=== PATIENT | female | born 1945 | race Caucasian/White ===

== ENCOUNTER → 2019-08-02 19:18 | Outpatient (ROUT) | payer MEDICARE, SELFPAY ==
[2019-08-02 19:46] LABS: Add Manual Diff / Slide Review NO; Basophils Absolute Auto 100 /uL (0-100); Basophils Percent Auto 1.5 % (0-2); Eosinophils Absolute Auto 100 /uL (0-450); Eosinophils Percent Auto 2.8 % (2-4); Hematocrit 37.6 % (36-46); Hemoglobin 12.6 g/dL (12.0-16.0); Lymphocytes Absolute Auto 1300 /uL (1100-4500); Lymphocytes Percent Auto 25.2 % (25-40); Mean Corpuscular HGB Conc 33.5 % (30-36); Mean Corpuscular Hemoglobin 30.3 PG (26-34); Mean Corpuscular Volume 90.2 fL (80-100); Monocytes Absolute Auto 400 /uL (0-900); Monocytes Percent Auto 7.8 % (3-14); Neutrophils Absolute Auto 3200 /uL (1500-7000); Neutrophils Percent Auto 62.7 % (50-75); Platelet Count 277 X10^3/uL (150-400); Red Blood Cell Count 4.17 X10^6/uL (4.0-5.2); Red Cell Distribution Width 13.2 % (11.6-14.8)
[2019-08-02 19:55] LABS: Alanine Aminotransferase 21 IU/L (<35); Albumin 4.1 g/dL (3.5-5.0); Albumin Globulin Ratio 1.4 (1.0-2.8); Alkaline Phosphatase 52 U/L (38-126); Aspartate Aminotransferase 28 IU/L (14-36); Bilirubin Total 0.3 mg/dL (0.2-1.3); Blood Urea Nitrogen 15 mg/dL (7-17); Calcium 9.8 mg/dL (8.4-10.2); Carbon Dioxide 22 mmol/L (22-32); Chloride 104 mmol/L (98-107); Cholesterol 193 mg/dL (140-199); Estimated Glomerular Filt Rate > 60.0 mL/min (>60); Globulin 2.9 g/dL (1.7-4.1); Glucose 191 mg/dL (80-110); HDL Cholesterol 68 mg/dL (40-60); HEMOLYSIS < 15 (0-50); LDL Cholesterol Calculated 97 mg/dL (<100); Sodium 136 mmol/L (137-145); Triglycerides 140 mg/dL (35-150)
[2019-08-02 20:24] LABS: TSH w/ Reflex to FT4 1.46 uIU/mL (0.47-4.68)
== END ==
PROVIDERS: Visit Provider Student in an Organized Health Care Education/Training Program
DX: E03.9 Hypothyroidism, unspecified (principal); E78.5 Hyperlipidemia, unspecified
CPT/HCPCS: 80053; 80061; 84443; 85025

== ENCOUNTER → 2019-10-11 11:46 | Outpatient (CLI) | payer OTHER, SELFPAY ==
--- NOTE | 2019-10-11 | DI.RAD.S_ITS ---
PROCEDURE: XR WRIST LT MIN 3V INDICATIONS: GLF/ LT WRIST PAIN TECHNIQUE: 4 views of the wrist were acquired. COMPARISON: None. FINDINGS: Bones: On the lateral view there appears to be a dorsally impacted distal radius fracture, presumably acute in this clinical circumstance, and this appearance most likely intra-articular and somewhat greater medially than laterally. Additionally there is a cortical irregularity at the lateral border of the scaphoid bone, seen on the dedicated navicular view and potentially a manifestation of acute injury. No suspicious bony lesions. Scaphoid view: Cortical irregularity as discussed above, lateral border of the scaphoid bone near the junction of the middle and distal thirds worrisome for representing a scaphoid fracture. Soft tissues: No suspicious soft tissue calcifications. IMPRESSION: Definite distal radius dorsally angulated fracture, suspect scaphoid fracture also superimposed. MR scanning could be utilized to document scaphoid fracture if clinically necessary. Dictated by: Ryder Lopez M.D. on 10/11/2019 at 12:14 Approved by: Ryder Lopez M.D. on 10/11/2019 at 12:31
== END ==
PROVIDERS: PCP Student in an Organized Health Care Education/Training Program; Referring Provider Student in an Organized Health Care Education/Training Program; Visit Provider Student in an Organized Health Care Education/Training Program
DX: M25.532 Pain in left wrist (principal); S52.502A Unspecified fracture of the lower end of left radius, initial encounter for closed fracture; W18.30XA Fall on same level, unspecified, initial encounter
CPT/HCPCS: 73110

== ENCOUNTER → 2020-01-11 14:39 | Outpatient (CLI) | payer MEDICARE, SELFPAY | PROVIDERS: PCP Student in an Organized Health Care Education/Training Program; Referring Provider Student in an Organized Health Care Education/Training Program; Visit Provider Student in an Organized Health Care Education/Training Program | DX: M81.0 Age-related osteoporosis without current pathological fracture (principal); M85.80 Other specified disorders of bone density and structure, unspecified site; Z78.0 Asymptomatic menopausal state; E07.9 Disorder of thyroid, unspecified; Z87.891 Personal history of nicotine dependence | CPT/HCPCS: 77080 ==

== ENCOUNTER → 2020-02-26 08:07 | Outpatient (CLI) | payer MEDICARE, SELFPAY ==
--- NOTE | 2020-02-26 08:09 | DI.MG.S_ITS ---
BILATERAL DIGITAL SCREENING MAMMOGRAM 3D/2D WITH CAD: 02/26/2020 CLINICAL: Routine screening. Family history of breast cancer. Comparison is made to exams dated: 12/31/2016 mammogram and 07/14/2014 mammogram - [facility]. The tissue of both breasts is predominantly fatty. Current study was also evaluated with a Computer Aided Detection (CAD) system. No significant masses, calcifications, or other findings are seen in either breast. There has been no significant interval change. IMPRESSION: NEGATIVE There is no mammographic evidence of malignancy. A 1 year screening mammogram is recommended. This exam was interpreted at Station ID: [id number]. NOTE: For mammograms, a report in lay terms will be sent to the patient. Approximately 15% of breast malignancies will not be visualized mammographically. In the management of a palpable breast mass, a negative mammogram must not discourage biopsy of a clinically suspicious lesion. Electronically Signed By: Miguel A [email or web address]:02/28/2020 07:27:15 letter sent: Normal Exam ACR BI-RADS Category 1: Negative 3341F
== END ==
PROVIDERS: PCP Student in an Organized Health Care Education/Training Program; Referring Provider Student in an Organized Health Care Education/Training Program; Visit Provider Student in an Organized Health Care Education/Training Program
DX: Z12.31 Encounter for screening mammogram for malignant neoplasm of breast (principal); Z80.3 Family history of malignant neoplasm of breast
CPT/HCPCS: 77063; 77067

== ENCOUNTER → 2020-07-13 15:14 | Outpatient (ROUT) | payer OTHER, SELFPAY ==
[2020-07-13 15:41] LABS: Hematocrit 39.5 % (36-46); Hemoglobin 13.2 g/dL (12.0-16.0); Mean Corpuscular HGB Conc 33.4 % (30-36); Mean Corpuscular Hemoglobin 30.6 PG (26-34); Mean Corpuscular Volume 91.6 fL (80-100); Platelet Count 309 X10^3/uL (150-400); Red Blood Cell Count 4.32 X10^6/uL (4.0-5.2); Red Cell Distribution Width 13.7 % (11.6-14.8); White Blood Cell Count 5.3 X10^3/uL (4.5-11.0)
[2020-07-13 15:47] LABS: Alanine Aminotransferase 23 IU/L (<35); Albumin 3.9 g/dL (3.5-5.0); Albumin Globulin Ratio 1.3 (1.0-2.8); Alkaline Phosphatase 49 U/L (38-126); Aspartate Aminotransferase 31 IU/L (14-36); BUN Creatinine Ratio 26.7 (6-22); Bilirubin Total 0.5 mg/dL (0.2-1.3); Blood Urea Nitrogen 20 mg/dL (7-17); Calcium 9.5 mg/dL (8.4-10.2); Carbon Dioxide 31 mmol/L (22-32); Chloride 104 mmol/L (98-107); Cholesterol 206 mg/dL (140-199); Estimated Glomerular Filt Rate > 60.0 mL/min (>60); Globulin 2.9 g/dL (1.7-4.1); Glucose 97 mg/dL (80-110); HDL Cholesterol 76 mg/dL (40-60); HEMOLYSIS < 15 (0-50); LDL Cholesterol Calculated 112 mg/dL (<100); Potassium 4.4 mmol/L (3.4-5.1); Sodium 138 mmol/L (137-145); Total Protein 6.8 g/dL (6.3-8.2); Triglycerides 88 mg/dL (35-150)
[2020-07-13 15:56] LABS: Hemoglobin A1C% w Est Avg Glu 5.9 % (4.0-6.0)
[2020-07-13 16:08] LABS: TSH w/ Reflex to FT4 3.11 uIU/mL (0.47-4.68)
== END ==
PROVIDERS: PCP Student in an Organized Health Care Education/Training Program; Visit Provider Student in an Organized Health Care Education/Training Program
DX: Z00.00 Encounter for general adult medical examination without abnormal findings (principal); E78.5 Hyperlipidemia, unspecified; E03.9 Hypothyroidism, unspecified; R73.01 Impaired fasting glucose
CPT/HCPCS: 80053; 80061; 83036; 84443; 85027

== ENCOUNTER → 2021-03-22 16:26 | Outpatient (CLI) | payer OTHER, SELFPAY ==
--- NOTE | 2021-03-22 | DI.MG.S_ITS ---
BILATERAL DIGITAL SCREENING MAMMOGRAM 3D/2D WITH CAD: 03/22/2021 CLINICAL: Routine screening. Family history of breast cancer. Comparison is made to exams dated: 02/26/2020 mammogram - [facility], 12/31/2016 mammogram, and 07/14/2014 mammogram - [facility]. There are scattered fibroglandular elements in both breasts. Current study was also evaluated with a Computer Aided Detection (CAD) system. No significant masses, calcifications, or other findings are seen in either breast. There has been no significant interval change. IMPRESSION: NEGATIVE There is no mammographic evidence of malignancy. A 1 year screening mammogram is recommended. This exam was interpreted at Station ID: [id number]. NOTE: For mammograms, a report in lay terms will be sent to the patient. Approximately 15% of breast malignancies will not be visualized mammographically. In the management of a palpable breast mass, a negative mammogram must not discourage biopsy of a clinically suspicious lesion. Electronically Signed By: Bruno taylor/alia:03/22/2021 17:12:55 letter sent: Normal Exam ACR BI-RADS Category 1: Negative 3341F
== END ==
PROVIDERS: PCP Student in an Organized Health Care Education/Training Program; Referring Provider Student in an Organized Health Care Education/Training Program; Visit Provider Student in an Organized Health Care Education/Training Program
DX: Z12.31 Encounter for screening mammogram for malignant neoplasm of breast (principal)
CPT/HCPCS: 77063; 77067

== ENCOUNTER → 2021-03-27 09:46 | Outpatient (CLI) | payer OTHER, SELFPAY ==
--- NOTE | 2021-03-27 09:47 | DI.RAD.S_ITS ---
PROCEDURE: XR CHEST 2V INDICATIONS: cough x2 years TECHNIQUE: 2 views of the chest were acquired. COMPARISON: None. FINDINGS: Surgical changes and devices: None. Lungs and pleura: Lungs are clear. No pleural effusions or pneumothorax. Mediastinum: Mediastinal contours are normal. Heart size is normal. Bones and chest wall: No suspicious bony abnormalities. Soft tissues appear unremarkable. IMPRESSION: No acute cardiopulmonary disease. Dictated by: Sherri Luciano M.D. on 03/27/2021 at 10:15 Approved by: Sherri Luciano M.D. on 03/27/2021 at 10:16
== END ==
PROVIDERS: PCP Student in an Organized Health Care Education/Training Program; Referring Provider Physician Assistant; Visit Provider Physician Assistant
DX: R05 Cough (principal)
CPT/HCPCS: 71046

== ENCOUNTER 2021-04-27 10:27 | Emergency (ER) | payer OTHER, SELFPAY ==
[2021-04-27 10:50] VITALS: BP 124/65; PULSE 56; RESP 18; TEMP 36.5; O2SAT 99; BMI 25.7
[2021-04-27 11:19] VITALS: PULSE 56; O2SAT 99
[2021-04-27 11:30] VITALS: BP 134/65; PULSE 61; O2SAT 99
[2021-04-27 12:00] VITALS: PULSE 71; O2SAT 99
[2021-04-27 12:01] VITALS: BP 144/60; PULSE 67; O2SAT 98
[2021-04-27 12:01] LABS: COVID19 -Nasal RAPID Negative (Negative)
--- NOTE | 2021-04-27 12:53 | ED.URI ---
HPI - URI/Sore Throat <GERHARD Carcamo - Last Filed: 04/27/21 13:34> General Chief Complaint: Upper Respiratory Symptoms Stated Complaint: vomitting, coughing, chills Time Seen by Provider: 04/27/21 12:03 Source: patient Mode of arrival: Family Vehicle Limitations: no limitations History of Present Illness HPI Narrative: 76-year-old female With past medical history of hyperlipidemia, osteopenia, hypothyroidism presents emergency department with complaint of cough and nausea with 1 episode of vomiting that happened this morning at 4:30 a.m.. She states she is vaccinated for COVID but she was recently exposed to someone who tested positive for COVID. When she threw up this morning she went to come in and make sure that she did not have COVID. She denies having any fever, shortness of breath, wheezing, chest pain, dizziness, persistent nausea, or diarrhea. Review of Systems <GERHARD Carcamo - Last Filed: 04/27/21 13:34> Review of Systems Narrative: General: denies fever, chills Head/Neck: denies headache, neck pain Eyes: denies visual changes, eye pain Cardio: denies chest pain, palpitations Respiratory: denies shortness of breath, endorses having a chronic cough GI: denies abdominal pain, nausea, or diarrhea, endorses 1 episode of vomiting this morning at 4:30 a.m.. : denies dysuria, hematuria MSK: denies joint pain, muscle weakness Skin: denies rash, itching Neuro: denies numbness, tingling Patient History <GERHARD Carcamo - Last Filed: 04/27/21 13:34> Social History Smoking Status: Former smoker Smoking Status: Former smoker tobacco type: cigarettes alcohol intake frequency: 3 or more drinks per day Substance Use Type: marijuana Exam <GERHARD Carcamo Last Filed: 04/27/21 13:34> Narrative Exam Narrative: Independently reviewed vitals signs and nursing notes. General: Awake, alert, nontoxic, no cardiorespiratory distress Head/Neck: Atraumatic, neck full range of motion Eyes: EOMI, conjunctiva normal Nose: nares patent, no rhinorrhea Mouth/Throat: moist mucus membranes, posterior pharynx normal, no oral lesions Cardio: Regular rate and rhythm, no peripheral edema Respiratory: In no distress, respirations unlabored without wheezing, stridor, or rales. No retractions. no tachypnea, regular rate and rhythm, no coughing from my exam, patient is satting 98% on room air. GI: Abdomen soft, nontender MSK: Moves all extremities, neurovascularly intact Skin: Normal capillary refill, no rash Neuro: Normal speech and cognition, normal gait Initial Vital Signs Initial Vital Signs: Vital Signs Temperature 97.7 F 04/27/21 10:50 Pulse Rate 56 L 04/27/21 10:50 Respiratory Rate 18 04/27/21 10:50 Blood Pressure 124/65 04/27/21 10:50 Pulse Oximetry 99 04/27/21 10:50 <Sofia Snider DO - Last Filed: 05/01/21 07:02> Initial Vital Signs Initial Vital Signs: Vital Signs Temperature 97.7 F 04/27/21 10:50 Pulse Rate 56 L 04/27/21 10:50 Respiratory Rate 18 04/27/21 10:50 Blood Pressure 124/65 04/27/21 10:50 Pulse Oximetry 99 04/27/21 10:50 Course <CYRUS CarcamoP - Last Filed: 04/27/21 13:34> Orders Ordered: ED Orders 04/27/21 11:04 COVID19 -Nasal swab/Pre-Proc Stat Vital Signs Vital signs: Vital Signs - 8 hr 04/27/21 10:50 04/27/21 11:19 04/27/21 11:30 Temperature 97.7 F Pulse Rate 56 L 56 L 61 Respiratory Rate 18 Blood Pressure 124/65 134/65 Pulse Oximetry 99 99 99 04/27/21 12:00 04/27/21 12:01 Temperature Pulse Rate 71 67 Respiratory Rate Blood Pressure 144/60 H Pulse Oximetry 99 98 <Sofia Snider DO - Last Filed: 05/01/21 07:02> Orders Ordered: ED Orders 04/27/21 11:04 COVID19 -Nasal swab/Pre-Proc Stat Vital Signs Vital signs: Vital Signs - 8 hr 04/27/21 10:50 04/27/21 11:19 04/27/21 11:30 Temperature 97.7 F Pulse Rate 56 L 56 L 61 Respiratory Rate 18 Blood Pressure 124/65 134/65 Pulse Oximetry 99 99 99 04/27/21 12:00 04/27/21 12:01 Temperature Pulse Rate 71 67 Respiratory Rate Blood Pressure 144/60 H Pulse Oximetry 99 98 MDM - URI/Sore Throat <FeleciaGERHARD Silverman - Last Filed: 04/27/21 13:34> Lab Data Labs: Lab Results 04/27/21 Range/Units 11:04 SARS-CoV-2 (PCR) Negative (Negative) MDM Narrative Medical decision making narrative: Patient has a chronic cough which is unchanged for the last 2 years without evidence of hypoxia, fluid overload, acute cardiopulmonary distress, dehydration or focal exam to suggest that bacterial or viral infection. her greatest concern was that she was COVID positive, on testing today she was COVID negative, she did not feel that she was ill from her 1 episode of emesis I thought maybe it was related to her dinner. She does not have a worsening cough and understands to follow-up with her PCP regarding her chronic cough. Patient is appropriate and amenable to discharge home. Vital signs are stable on repeat examination is unremarkable. Patient has been informed of results. Patient has been given strict return to ER precautions for any new or worsening symptoms. Patient understands to follow up closely with outpatient providers as instructed. Patient understands plan and agrees to discharge home. All questions and concerns answered at this time. <Sofia Snider DO - Last Filed: 05/01/21 07:02> Lab Data Labs: Lab Results 04/27/21 Range/Units 11:04 SARS-CoV-2 (PCR) Negative (Negative) Discharge Plan Departure Patient Disposition: Home Clinical Impression: Nausea, Cough Instructions: DI for Nausea -- Adult Activity Restrictions/Additional Instructions: *You have been diagnosed with a cough and an episode of vomiting this morning. Your COVID test was negative, was congratulations. Please monitor yourself for of fever, worsening also shortness of breath symptoms, any more episodes of vomiting, and please return to the emergency department with worsening of any of these symptoms. *What to do: *Please continue to take your regular medications as directed. [ ] New medication prescriptions sent to your pharmacy: [ ] [ ] New medication written as a paper prescription [x ] No new medications given *Please follow up with your primary care provider in 2-3 days, call for an appointment. Let them know you were seen in the Emergency Department and that we ask that you be seen in follow up. We will electronically transmit a record of today's note if your PCP is in our system *If you do not have a primary care provider please contact the [facility] Resource line at [phone]. They will ask some questions about your medical history and help get you set up with a doctor in the community. *Return to Emergency Department if you should have any new, worsening or concerning symptoms, such as [fever greater than 101F, chills, worsening pain, persistent vomiting or other bothersome symptoms] Referrals: Berta Espitia PA-C [Primary Care Provider] - <Sofia Snider DO - Last Filed: 05/01/21 07:02> Cosign ED Attending Rose Maryature Attestation: I was immediately available in the department for consultation. Documentation has been reviewed. I agree with assessment and plan.
== END 2021-04-27 12:20 | disposition home or self-care (01) ==
PROVIDERS: Emergency Medicine; Emergency Provider Nurse Practitioner Critical Care Medicine; PCP Student in an Organized Health Care Education/Training Program
DX: R11.2 Nausea with vomiting, unspecified (principal); R05.3 Chronic cough; Z20.822 Contact with and (suspected) exposure to COVID-19
CPT/HCPCS: 87635; 99282; C9803

== ENCOUNTER → 2022-06-14 11:00 | Outpatient (CLI) | payer OTHER, SELFPAY ==
--- NOTE | 2022-06-14 | DI.MG.S_ITS ---
BILATERAL DIGITAL SCREENING MAMMOGRAM 3D/2D WITH CAD: 06/14/2022 CLINICAL: Routine screening. Family history of breast cancer. Comparison is made to exams dated: 03/22/2021 mammogram, 02/26/[address] mamm[address] - [facility], and 12/31/2016 mammogram - [facility]. There are scattered areas of fibroglandular density in both breasts (category b / 25%-50% glandular tissue). Current study was also evaluated with a Computer Aided Detection (CAD) system. No significant masses, calcifications, or other findings are seen in either breast. There has been no significant interval change. IMPRESSION: NEGATIVE There is no mammographic evidence of malignancy. A 1 year screening mammogram is recommended. Based on the Tyrer Cuzick model (a risk assessment model) the patient's lifetime risk is 3.7% and her 10 year risk is 0.0%. According to the ACR, ACS, and NCCN guidelines, an annual breast MRI exam along with mammogram is recommended if the patient's lifetime risk is 20% or greater. This exam was interpreted at Station ID: [id number]. NOTE: For mammograms, a report in lay terms will be sent to the patient. Approximately 15% of breast malignancies will not be visualized mammographically. In the management of a palpable breast mass, a negative mammogram must not discourage biopsy of a clinically suspicious lesion. Electronically Signed By: Mena [email or web address]/alia:06/14/2022 13:45:18 letter sent: Normal Exam ACR BI-RADS Category 1: Negative 3341F
== END ==
PROVIDERS: PCP Student in an Organized Health Care Education/Training Program; Referring Provider Student in an Organized Health Care Education/Training Program; Visit Provider Student in an Organized Health Care Education/Training Program
DX: Z12.31 Encounter for screening mammogram for malignant neoplasm of breast (principal); Z80.3 Family history of malignant neoplasm of breast
CPT/HCPCS: 77063; 77067

== ENCOUNTER → 2022-07-17 12:23 | Outpatient (CLI) | payer OTHER, SELFPAY ==
--- NOTE | 2022-07-17 12:24 | DI.RAD.S_ITS ---
PROCEDURE: XR LUMBAR SPINE 6V W BENDING INDICATIONS: back pain TECHNIQUE: 7 views of the lumbar spine acquired, including flexion and extension views. COMPARISON: None. FINDINGS: Bones: 5 nonrib-bearing vertebrae are present. There is mild scoliosis. There is grade 1 anterolisthesis of L4 on L5. No vertebral body compression fractures. No suspicious bony lesions. Degenerative disc disease is present, moderate at L4-L5 and L5-S1, mild at other levels. Moderate facet arthropathy at L4-L5 and L5-S1. Soft tissues: Overlying bowel gas pattern is normal. Moderate atherosclerotic calcifications. Flexion/extension: There is normal range of motion, with preserved normal alignment. Oblique views: No pars defects. IMPRESSION: 1. Multilevel degenerative disc and facet disease in lumbar spine, most pronounced at L4-L5 and L5-S1. 2. Grade 1 anterolisthesis of L4 on L5. 3. On flexion extension, there is stable alignment. 4. No pars defects. 5. Moderate atherosclerosis. Dictated by: Sherri Luciano M.D. on 07/17/2022 at 16:40 Approved by: Sherri Luciano M.D. on 07/17/2022 at 16:44
== END ==
PROVIDERS: PCP Family Medicine; Referring Provider Family Medicine; Visit Provider Family Medicine
DX: M51.16 Intervertebral disc disorders with radiculopathy, lumbar region (principal); M51.17 Intervertebral disc disorders with radiculopathy, lumbosacral region; M47.26 Other spondylosis with radiculopathy, lumbar region; M47.27 Other spondylosis with radiculopathy, lumbosacral region; M43.16 Spondylolisthesis, lumbar region; G89.29 Other chronic pain
CPT/HCPCS: 72114

== ENCOUNTER 2022-08-24 15:35 | Emergency (ER) | payer OTHER, SELFPAY ==
[2022-08-24] VITALS (7 sets, daily range): BP systolic 118–158; BP diastolic 70–78; PULSE 68–76; RESP 18; TEMP 37; O2SAT 96–99; BMI 23.0
[2022-08-24 16:12] LABS: Add Manual Diff / Slide Review NO; Basophils Absolute Auto 100 /uL (0-100); Basophils Percent Auto 0.7 % (0-2); Eosinophils Absolute Auto 200 /uL (0-450); Eosinophils Percent Auto 2.1 % (2-4); Hematocrit 38.6 % (36-46); Lymphocytes Absolute Auto 900 /uL (1100-4500); Lymphocytes Percent Auto 10.5 % (25-40); Mean Corpuscular HGB Conc 33.7 % (30-36); Mean Corpuscular Hemoglobin 30.3 PG (26-34); Mean Corpuscular Volume 89.9 fL (80-100); Monocytes Absolute Auto 800 /uL (0-900); Monocytes Percent Auto 9.6 % (3-14); Neutrophils Absolute Auto 6500 /uL (1500-7000); Neutrophils Percent Auto 77.1 % (50-75); Platelet Count 314 X10^3/uL (150-400); Red Cell Distribution Width 13.9 % (11.6-14.8); White Blood Cell Count 8.4 X10^3/uL (4.5-11.0)
[2022-08-24 16:20] LABS: Alanine Aminotransferase 17 IU/L (<35); Albumin 4.2 g/dL (3.5-5.0); Albumin Globulin Ratio 1.2 (1.0-2.8); Alkaline Phosphatase 55 U/L (38-126); Aspartate Aminotransferase 24 IU/L (14-36); BUN Creatinine Ratio 21.2 (6-22); Bilirubin Total 0.5 mg/dL (0.2-1.3); Blood Urea Nitrogen 14 mg/dL (7-17); Calcium 9.5 mg/dL (8.4-10.2); Carbon Dioxide 25 mmol/L (22-32); Chloride 102 mmol/L (98-107); Estimated Glomerular Filt Rate > 60 mL/min (>60); Globulin 3.4 g/dL (1.7-4.1); Glucose 102 mg/dL (80-110); HEMOLYSIS 19 (0-50); Lipase 109 U/L (23-300); Potassium 4.3 mmol/L (3.4-5.1); Sodium 137 mmol/L (137-145); Total Protein 7.6 g/dL (6.3-8.2)
--- NOTE | 2022-08-24 16:29 | ED_ITS ---
HPI - Abdominal Pain General Chief Complaint: Abdominal Pain Stated Complaint: bowel pain/blood in bm x1 day Time Seen by Provider: 08/24/22 16:11 Source: patient Mode of arrival: Ambulatory History of Present Illness HPI narrative: Patient healthy 77-year-old female history of hyperlipidemia hypothyroid presenting today with left lower quadrant pain. She says she intermittently has some abdominal pain however last 6-8 hours it has been fairly constant. No nausea vomiting or fever. No bowel movement. She denies any chest pain. No flank pain or radiation to her groin. Prior history of kidney stones or diverticulitis. Denies any painful or frequent urination. She is not taken anything at home for pain Related Data Previous Rx's Medication Instructions Recorded alendronate 70 mg tablet 70 mg PO QWEEK #12 tabs 07/12/22 atorvastatin 20 mg tablet 20 mg PO BEDTIME #90 tabs 07/12/22 levothyroxine 50 mcg tablet 50 mcg PO DAILY #90 tabs 07/12/22 ciprofloxacin HCl 500 mg tablet 500 mg PO BID #20 tabs 08/24/22 (Cipro) metronidazole 500 mg tablet 500 mg PO Q8H 10 days #30 tabs 08/24/22 Allergies Allergy/AdvReac Type Severity Reaction Status Date / Time No Known Drug Allergies Allergy Unverified 07/12/22 14:43 Review of Systems Review of Systems ROS Unobtainable: All systems reviewed & are unremarkable except as noted in HPI and below Patient History Medical History Cataracts, bilateral Fractures (~2019) Hypothyroidism (~2009) Osteoporosis (~2013) Surgical History Anesthesia History of cataract removal with insertion of prosthetic lens History of section (~05/10/85) Family History Father History of emphysema Mother Cancer Grandmother Diabetes mellitus Social History Smoking Status: Former smoker Tobacco: How many years used: 10 alcohol intake: current (4-5 drinks per week ) substance use type: does not use Smoking Status: Former smoker tobacco type: cigarettes alcohol intake frequency: 3 or more drinks per day Alcohol type: wine Substance Use Type: does not use Exam Initial Vital Signs Initial Vital Signs: Vital Signs Temperature 98.6 F 08/24/22 15:47 Pulse Rate 76 08/24/22 15:47 Respiratory Rate 18 08/24/22 15:47 Blood Pressure 158/78 H 08/24/22 15:47 Pulse Oximetry 98 08/24/22 15:47 Oxygen Delivery Method 08/24/22 15:47 GENERAL: Alert pleasant well-appearing 77-year-old female and in no acute dist ress. HEENT: Head atraumatic,EOMI, pupils reactive, face symmetric, moist mucous membranes CARDIOVASCULAR: Regular rate and rhythm without murmurs, rubs or gallops. RESPIRATORY: Breath sounds equal bilaterally, no wheezes rales or rhonchi. ABDOMEN: Soft, tender left lower quadrant no guarding no rebound mild suprapubic pain no right lower quadrant pain : No CVA tenderness EXTREMITIES: Normal range of motion, no clubbing or edema. Neurovascularly intact NEUROLOGICAL: Alert and oriented x4.Normal gait and speech. SKIN: Warm, dry, no laceration, no petechiae, no rashes or lesions. Course Orders Ordered: ED Orders 08/24/22 16:00 Complete Blood Count AUTO DIFF Stat Comprehensive Metabolic Panel Stat Lipase Stat Urine Microscopic Stat 08/24/22 16:21 EKG-12 Lead Stat 08/24/22 16:34 CT abdomen pelvis w con Stat Discontinued Medications Ciprofloxacin (Ciprofloxacin 250 Mg Tablet) 500 mg PO NOW ONE Stop: 08/24/22 17:39 Last Admin: 08/24/22 17:42 Dose: 500 mg Documented By: CM Ketorolac Tromethamine (Ketorolac 30 Mg/Ml Vial) 15 mg IV NOW ONE Stop: 08/24/22 16:35 Last Admin: 08/24/22 16:51 Dose: 15 mg Documented By: ABDIRASHID Metronidazole (Metronidazole 500 Mg Tablet) 500 mg PO NOW ONE Stop: 08/24/22 17:38 Last Admin: 08/24/22 17:41 Dose: 500 mg Documented By: CM Ondansetron HCl (Ondansetron 4 Mg/2 Ml Inj) 4 mg IV NOW PRN PRN Reason: Nausea And Vomiting Vital Signs Vital signs: Vital Signs - 8 hr 08/24/22 15:47 08/24/22 16:01 08/24/22 16:30 Temperature 98.6 F Pulse Rate 76 74 69 Respiratory Rate 18 Blood Pressure 158/78 H Pulse Oximetry 98 97 96 Oxygen Delivery Method Room Air 08/24/22 16:55 08/24/22 16:55 08/24/22 17:00 Temperature Pulse Rate 68 Respiratory Rate Blood Pressure 118/74 135/71 Pulse Oximetry 98 Oxygen Delivery Method 08/24/22 17:00 08/24/22 17:30 08/24/22 17:31 Temperature Pulse Rate 68 70 Respiratory Rate Blood Pressure 146/70 H Pulse Oximetry 99 98 Oxygen Delivery Method MDM - Abdominal Pain Lab Data 08/24/22 16:00 08/24/22 16:00 Labs: Lab Results 08/24/22 08/24/22 08/24/22 Range/Units 16:00 16:00 16:00 WBC 8.4 (4.5-11.0) X10^3/uL RBC 4.30 (4.0-5.2) X10^6/uL Hgb 13.0 (12.0-16.0) g/dL Hct 38.6 (36-46) % MCV 89.9 (80-100) fL MCH 30.3 (26-34) PG MCHC 33.7 (30-36) % RDW 13.9 (11.6-14.8) % Plt Count 314 (150-400) X10^3/uL Neut % (Auto) 77.1 H (50-75) % Lymph % (Auto) 10.5 L (25-40) % Swift % (Auto) 9.6 (3-14) % Eos % (Auto) 2.1 (2-4) % Baso % (Auto) 0.7 (0-2) % Neut # (Auto) 6500 (7562-8647) /uL Lymph # (Auto) 900 L (0525-8435) /uL Swift # (Auto) 800 (0-900) /uL Eos # (Auto) 200 (0-450) /uL Baso # (Auto) 100 (0-100) /uL Sodium 137 (137-145) mmol/L Potassium 4.3 (3.4-5.1) mmol/L Chloride 102 (98-107) mmol/L Carbon Dioxide 25 (22-32) mmol/L BUN 14 (7-17) mg/dL Creatinine 0.66 (0.52-1.04) mg/dL Estimated GFR > 60 (>60) mL/min BUN/Creatinine Ratio 21.2 (6-22) Glucose 102 (80-110) mg/dL Calcium 9.5 (8.4-10.2) mg/dL Total Bilirubin 0.5 (0.2-1.3) mg/dL AST 24 (14-36) IU/L ALT 17 (<35) IU/L Alkaline Phosphatase 55 (38-126) U/L Total Protein 7.6 (6.3-8.2) g/dL Albumin 4.2 (3.5-5.0) g/dL Globulin 3.4 (1.7-4.1) g/dL Albumin/Globulin Ratio 1.2 (1.0-2.8) Lipase 109 (23-300) U/L Urine RBC 0-1/hpf (0-5/HPF) Urine WBC None seen (0-5/HPF) Urine Bacteria None seen (None) Ur Culture Indicated? Cult not indicated Point of care testing: Urine Dip Bedside Urine Glucose Negative Bedside Urine Bilirubin - Negative Bedside Urine Ketone - Negative Urine Specific [place] 1.015 Bedside Urine Occult Blood ++ Bedside Urine pH 6.0 Bedside Urine Protein - Negative Bedside Urine Urobilinogen - Negative Bedside Urine Nitrite - Negative Bedside Urine Leukocytes - Negative Esterase Imaging Data CT scan - abdomen/pelvis: Radiologist's Impression: CT Scan Report Signed Patient: Maty Live MR#: [id number] : 1945 Acct:[id number] Age/Sex: 77 / F Date of Service: 08/24/22 Loc: ED Accession Number: [id number] ?? Procedure: CT abdomen pelvis w con Ordering Provider: Sofia Snider D.O. PROCEDURE:? CT ABDOMEN PELVIS W CON ? INDICATIONS:? LLQ pain ? TECHNIQUE:? After the administration of IV contrast, axial sections were acquired from the lung bases to the pubic symphysis.? Coronal and sagittal reformats were performed.? For radiation dose reduction, the following was used:? automated exposure control, adjustment of mA and/or kV according to patient size. ? COMPARISON:? [facility], CR, XR LUMBAR SPINE 6V W BENDING, 07/17/2022, 12:23. ? FINDINGS:? Image quality:? Excellent.? ? Lung bases:? Unremarkable.? ? Heart:? No significant findings. ? ? ABDOMEN: Liver:? Unremarkable.? ? Gallbladder:? Unremarkable.? ? Biliary ducts:? Unremarkable.? ? Pancreas:? Unremarkable.? ? Spleen:? Unremarkable.? ? Incidental note is made of an accessory splenule along the hilum of the primary spleen. Adrenal Glands:? Unremarkable.? ? Kidneys and Ureters:? Unremarkable.? ? ? Stomach and Bowel:? Focal moderate wall thickening can be seen within the sigmoid colon, where it diverticula formation can be seen.? Moderate surrounding inflammatory change can be seen. The colon is otherwise unremarkable. No dilated loops of small bowel are seen. Normal appendix. The stomach is relatively decompressed, limiting its evaluation. Peritoneum:? No abnormal intraperitoneal fluid.? No free air.? ? Ventral Wall: ? No hernia.? Abdominal Nodes:? No retroperitoneal or mesenteric adenopathy by size criteria.? Vessels:? Aorta and inferior vena cava are normal in size.? Atherosclerotic calcification is noted.? ? PELVIS: Pelvic Organs:? Unremarkable.? ? Bladder:? Unremarkable.? ? Pelvic Nodes: No enlarged lymph nodes.? Miscellaneous: No inguinal hernias are seen. ? ? ? Bones:? Focal lower lumbar spine degenerative changes are seen.? Milder degenerative changes are seen elsewhere.? ? ? IMPRESSION:? ? Moderate sigmoid diverticulitis, without findings of perforation or abscess. ? When clinically appropriate (following adequate treatment of the patient's current clinical episode) a colonoscopy is recommended for further evaluation for a potential underlying mass (if not already recently done). ? Additional findings:? Accessory splenule Normal appendix Focal lower lumbar spine degenerative change ? ? Dictated by: Karl Rolle M.D. on 08/24/2022 at 15:55 ? ? ECG Data Interpretation: Normal sinus rhythm rate 69 MS interval 142 QRS [address] changes no T- wave inversions MDM Narrative Medical decision making narrative: Patient 77-year-old female relatively healthy presenting with about 8 hours of left lower quadrant pain she feels is just different than her normal. No fever no leukocytosis. Electrolytes are within normal limits no sign of acute kidney injury. CT confirms uncomplicated diverticulitis. At this time medical management only with outpatient antibiotics. She is given her 1st dose of antibiotics here in the. She is feeling better after IV Toradol. Previous [facility] visit from earlier this year has been reviewed Discharge Plan Departure Patient Disposition: Home Clinical Impression: Diverticulitis Instructions: DI for Diverticulitis Activity Restrictions/Additional Instructions: *You have been diagnosed with diverticulitis *What to do: At this time he may find that a low-fiber diet maybe less painful for you. However once your done with antibiotics in your infection has healed please be sure to resume high-fiber diet. *Continue to take medications as directed Cipro 500 mg twice a day for 10 days Flagyl 500 mg 3 times a day for 10 days Motrin 600 mg every 6 hours if needed for [id number] pain Tylenol 650 mg every 4-6 hours if needed for [id number] pain *Follow up with your primary care provider in 2-3 days or call [phone] *Return to ER if you should have increasing abdominal pain bloody stools persistent vomiting fever [or] any new, worsening or concerning symptoms Prescriptions: New metronidazole 500 mg tablet 500 mg PO Q8H 10 Days Qty: 30 0RF ciprofloxacin HCl [Cipro] 500 mg tablet 500 mg PO BID Qty: 20 0RF No Action levothyroxine 50 mcg tablet 50 mcg PO DAILY Qty: 90 3RF atorvastatin 20 mg tablet 20 mg PO BEDTIME Qty: 90 3RF alendronate 70 mg tablet 70 mg PO QWEEK Qty: 12 3RF Referrals: Susan Masters DO [Primary Care Provider] - Stand Alone Forms: Patient Portal/API
--- NOTE | 2022-08-24 16:34 | DI.CT.S_ITS ---
PROCEDURE: CT ABDOMEN PELVIS W CON INDICATIONS: LLQ pain TECHNIQUE: After the administration of IV contrast, axial sections were acquired from the lung bases to the pubic symphysis. Coronal and sagittal reformats were performed. For radiation dose reduction, the following was used: automated exposure control, adjustment of mA and/or kV according to patient size. COMPARISON: [facility], CR, XR LUMBAR SPINE 6V W BENDING, 07/17/2022, 12:23. FINDINGS: Image quality: Excellent. Lung bases: Unremarkable. Heart: No significant findings. ABDOMEN: Liver: Unremarkable. Gallbladder: Unremarkable. Biliary ducts: Unremarkable. Pancreas: Unremarkable. Spleen: Unremarkable. Incidental note is made of an accessory splenule along the hilum of the primary spleen. Adrenal Glands: Unremarkable. Kidneys and Ureters: Unremarkable. Stomach and Bowel: Focal moderate wall thickening can be seen within the sigmoid colon, where it diverticula formation can be seen. Moderate surrounding inflammatory change can be seen. The colon is otherwise unremarkable. No dilated loops of small bowel are seen. Normal appendix. The stomach is relatively decompressed, limiting its evaluation. Peritoneum: No abnormal intraperitoneal fluid. No free air. Ventral Wall: No hernia. Abdominal Nodes: No retroperitoneal or mesenteric adenopathy by size criteria. Vessels: Aorta and inferior vena cava are normal in size. Atherosclerotic calcification is noted. PELVIS: Pelvic Organs: Unremarkable. Bladder: Unremarkable. Pelvic Nodes: No enlarged lymph nodes. Miscellaneous: No inguinal hernias are seen. Bones: Focal lower lumbar spine degenerative changes are seen. Milder degenerative changes are seen elsewhere. IMPRESSION: Moderate sigmoid diverticulitis, without findings of perforation or abscess. When clinically appropriate (following adequate treatment of the patient's current clinical episode) a colonoscopy is recommended for further evaluation for a potential underlying mass (if not already recently done). Additional findings: Accessory splenule Normal appendix Focal lower lumbar spine degenerative change Dictated by: Karl Rolle M.D. on 08/24/2022 at 15:55 Approved by: Karl Rolle M.D. on 08/24/2022 at 15:57
[2022-08-24 16:42] LABS: Bacteria Urine None Seen; Culture Indicated Urine Cult Not Indicated; RBC Urine 0-1/HPF (0-5/HPF); WBC Urine None Seen (0-5/HPF)
[2022-08-24] MEDS: KETOROLAC 30 MG/ML VIAL 15 MG IV (16:51)
[2022-08-24] MEDS: metroNIDAZOLE 500 MG TABLET PO (17:41)
[2022-08-24] MEDS: CIPROFLOXACIN 250 MG TABLET 500 MG PO (17:42)
== END 2022-08-24 17:43 | disposition home or self-care (01) ==
PROVIDERS: Emergency Provider Emergency Medicine; PCP Family Medicine
DX: K57.92 Diverticulitis of intestine, part unspecified, without perforation or abscess without bleeding (principal)
CPT/HCPCS: 36415; 74177; 80053; 81003; 81015; 83690; 85025; 93005; 93010; 96374; 99284; J1885; Q9967

== ENCOUNTER → 2022-11-29 08:36 | Outpatient (CLI) | payer MEDICARE, SELFPAY ==
[2022-11-29 09:09] LABS: Hematocrit 39.4 % (36-46); Hemoglobin 13.1 g/dL (12.0-16.0); Mean Corpuscular HGB Conc 33.1 % (30-36); Mean Corpuscular Hemoglobin 30.1 PG (26-34); Platelet Count 319 X10^3/uL (150-400); Red Blood Cell Count 4.33 X10^6/uL (4.0-5.2); Red Cell Distribution Width 14.7 % (11.6-14.8); White Blood Cell Count 4.9 X10^3/uL (4.5-11.0)
[2022-11-29 09:30] LABS: Alanine Aminotransferase 25 IU/L (<35); Albumin Globulin Ratio 1.3 (1.0-2.8); Alkaline Phosphatase 44 U/L (38-126); Aspartate Aminotransferase 31 IU/L (14-36); Bilirubin Total 0.5 mg/dL (0.2-1.3); Blood Urea Nitrogen 15 mg/dL (7-17); Calcium 9.2 mg/dL (8.4-10.2); Carbon Dioxide 29 mmol/L (22-32); Chloride 104 mmol/L (98-107); Cholesterol 189 mg/dL (140-199); Estimated Glomerular Filt Rate > 60 mL/min (>60); Globulin 3.1 g/dL (1.7-4.1); Glucose 105 mg/dL (80-110); HDL Cholesterol 64 mg/dL (40-60); HEMOLYSIS < 15 (0-50); LDL Cholesterol Calculated 111 mg/dL (<100); Potassium 4.2 mmol/L (3.4-5.1); Sodium 138 mmol/L (137-145); Total Protein 7.1 g/dL (6.3-8.2); Triglycerides 69 mg/dL (35-150)
[2022-11-29 09:48] LABS: Free T3, Triiodothyronine Free 3.18 pg/mL (2.77-5.27); Free T4, Direct Thyroxine 1.26 ng/dL (0.78-2.19)
[2022-11-29 10:01] LABS: Thyroid Stimulating Hormone 0.802 uIU/mL (0.47-4.68)
== END ==
PROVIDERS: PCP Family Medicine; Referring Provider Family Medicine; Visit Provider Family Medicine
DX: E03.9 Hypothyroidism, unspecified (principal); E78.5 Hyperlipidemia, unspecified; Z13.220 Encounter for screening for lipoid disorders; Z76.89 Persons encountering health services in other specified circumstances
CPT/HCPCS: 36415; 80053; 80061; 84439; 84443; 84481; 85027

== ENCOUNTER → 2023-01-09 10:15 | Outpatient (CLI) | payer MEDICARE, SELFPAY ==
--- NOTE | 2023-01-09 10:16 | DI.RAD.S_ITS ---
Bone Density Report Name: YAQUELIN WILLSON Age: 77 Sex: Female Ethnicity: White Date of : 1945 Indication: postmenopausal osteoporosis; monitoring treatment; Referring Provider: IRIS OSEGUERA Study: Bone densitometry was performed. Exam Date: January 09, 2023 Accession number: [id number] Bone Density: Region BMD T-score Z-score Classification AP Spine(L1, L2, L3) 0.831 -1.7 0.8 Osteopenia Femoral Neck (Left) 0.735 -1.0 1.2 Normal Total Hip (Left) 0.814 -1.1 0.9 Osteopenia Femoral Neck (Right) 0.765 -0.8 1.4 Normal Total Hip (Right) 0.784 -1.3 0.6 Osteopenia Total Hip Mean 0.799 -1.2 0.8 Osteopenia Total Forearm (Left) 0.397 -3.4 -0.6 Osteoporosis 1/3 Forearm (Left) 0.503 -3.2 -0.3 Osteoporosis UD Forearm (Left) 0.346 -1.7 0.4 Osteopenia World Health Organization criteria for BMD impression classify patients as: Normal (T-score at or above -1.0), Osteopenia (T-score between -1.0 and -2.5), or Osteoporosis (T-score at or below -2.5). 10-year Fracture Risk: FRAX not reported because: Treated for osteoporosis Previous Exams: -- Region Exam Age BMD T-score BMD Change BMD Change Date g/cm2 vs Baseline vs Previous -- AP Spine (L1-L3) 01/09/2023 77 0.831 -1.7 0.118 (16.6%)# 0.118 (16.6%)# 01/11/2020 74 0.713 -2.8 Total Hip(Left) 01/09/2023 77 0.814 -1.1 0.005 (0.7%)# 0.005 (0.7%)# 01/11/2020 74 0.809 -1.1 Total Hip(Right) 01/09/2023 77 0.784 -1.3 -0.016 (-1.9%)# -0.016 (-1.9%)# 01/11/2020 74 0.799 -1.2 -- *Denotes significance at 95% confidence level, LSC for AP Spine = 0.022 g/cm2, LSC for Total Hip = 0.027 g/cm2 # Denotes dissimilar scan types or analysis methods Impression: The patient has low bone mass, based on the Total Spine T-score. No significant bone loss was observed. Discussion: PATIENT UNDER TREATMENT WITH NO SIGNIFICANT BMD LOSS SINCE LAST EXAM. In an untreated patient, BMD typically declines with age. A lack of decline or gain is usually a sign that treatment is efficacious and fracture risk is reduced. It is important to ask patients whether they are taking their medications and to encourage continued and appropriate compliance with their osteoporosis therapies to reduce fracture risk. It is also important to review their risk factors and encourage appropriate calcium and vitamin D intakes, exercise, fall prevention and other lifestyle measures. Follow-Up: Consider a repeat BMD and Vertebral Fracture Assessment (VFA) exam in 2 years or sooner if medically necessary, to reassess this patient's status. Reported by: JORDON CASTRO M.D. on 01/09/2023 11:10:00 AM.
== END ==
PROVIDERS: PCP Family Medicine; Referring Provider Family Medicine; Visit Provider Family Medicine
DX: M81.0 Age-related osteoporosis without current pathological fracture (principal); Z78.0 Asymptomatic menopausal state; Z79.83 Long term (current) use of bisphosphonates
CPT/HCPCS: 77080; 77081

== ENCOUNTER → 2023-06-26 07:59 | Outpatient (CLI) | payer MEDICARE, SELFPAY ==
--- NOTE | 2023-06-26 | DI.MG.S_ITS ---
BILATERAL DIGITAL SCREENING MAMMOGRAM 3D/2D WITH CAD: 06/26/2023 CLINICAL: Routine screening. Family history of breast cancer. Comparison is made to exams dated: 06/14/2022 mammogram, 03/22/2021 mammogram, and 02/26/2020 mammogram - [facility]. There are scattered areas of fibroglandular density in both breasts (category b / 25%-50% glandular tissue). Current study was also evaluated with a Computer Aided Detection (CAD) system. No significant masses, calcifications, or other findings are seen in either breast. There has been no significant interval change. IMPRESSION: NEGATIVE There is no mammographic evidence of malignancy. A 1 year screening mammogram is recommended. Based on the Tyrer Cuzick model (a risk assessment model) the patient's lifetime risk is 3.3% and her 10 year risk is 0.0%. According to the ACR, ACS, and NCCN guidelines, an annual breast MRI exam along with mammogram is recommended if the patient's lifetime risk is 20% or greater. This exam was interpreted at Station ID: [id number]. NOTE: For mammograms, a report in lay terms will be sent to the patient. Approximately 15% of breast malignancies will not be visualized mammographically. In the management of a palpable breast mass, a negative mammogram must not discourage biopsy of a clinically suspicious lesion. Electronically Signed By: Gold bullock/alia:06/26/2023 10:12:48 letter sent: Normal Exam ACR BI-RADS Category 1: Negative 3341F
== END ==
PROVIDERS: PCP Family Medicine; Referring Provider Family Medicine; Visit Provider Family Medicine
DX: Z12.31 Encounter for screening mammogram for malignant neoplasm of breast (principal); Z80.3 Family history of malignant neoplasm of breast
CPT/HCPCS: 77063; 77067

== ENCOUNTER → 2024-01-20 14:51 | Outpatient (CLI) | payer MEDICARE, SELFPAY ==
--- NOTE | 2024-01-20 14:52 | DI.RAD.S_ITS ---
PROCEDURE: XR DEXA AXIAL SKELETON INDICATIONS: Osteoporosis COMPARISON: [facility], CR, XR DEXA AXIAL SKELETON, 01/09/2023, 10:36. [facility], CR, XR DEXA AXIAL SKELETON, 01/11/2020, 15:04. FINDINGS: Lumbar Spine: Bone mineral density 0.850 g/cm2, T score -1.5, no statistically significant change compared to prior.. Left Hip: Bone mineral density 0.75 g/cm2, T score -1.4, statistically significant decrease in bone mineral density by 4.8 percent. Left Femoral Neck: Bone mineral density 0.716 g/cm2, T score -1.2. Right Hip: Bone mineral density 0.780 g/cm2, T score -1.3, no statistically significant change compared to prior. Right Femoral Neck: Bone mineral density 0.708 g/cm2, T score -1.3. Left Forearm: Bone mineral density 0.517 g/cm2, T score -2.9, no statistically significant change compared to prior.. Fracture Risk Calculation (when applicable): 10-year fracture risk of a major osteoporotic fracture 12 percent and of a hip fracture 2.4 percent. (T score greater or equal to -1.0 to: NORMAL) (T score from -1.1 to -2.4: OSTEOPENIA) (T score less than or equal to -2.5: OSTEOPOROSIS) IMPRESSION: Osteoporosis by WHO classification. Follow-up guidelines as follows: Osteoporosis: Consider a repeat DEXA and Vertebral Fracture Assessment (VFA) exam in 2 years or sooner if medically necessary, to reassess this patient's status. Osteopenia: Consider a repeat DEXA in 2-3 years to reassess this patient's status, or if there is a new clinical indication. Normal: Consider a repeat DEXA in 5 years or sooner, or if there is a new clinical indication. All treatment decisions require clinical judgment and consideration of individual patient factors, including patient preferences, comorbidities, previous drug use, risk factors not captured in the FRAX model (e.g., frailty, falls, vitamin D deficiency, increased bone turnover, interval significant decline in bone density ) and possible under- or over-estimation of fracture risk by FRAX. In addition, the NOF Guide recommends that FDA-approved medical therapies be considered in postmenopausal women and men age >= 50 years with a: * Hip or vertebral (clinical or morphometric) fracture * T-score of <=-2.5 at the spine or hip * Ten-year fracture probability by FRAX of >= 3% for hip fracture or >=20% for major osteoporotic fracture. People with diagnosed cases of osteoporosis or at high risk for fracture should have regular bone mineral density tests. For patients eligible for Medicare, routine testing is allowed once every 2 years. The testing frequency can be increased to one year for patients who have rapidly progressing disease, those who are receiving or discontinuing medical therapy to restore bone mass, or have additional risk factors. Dictated by: Michelet Orozco M.D. on 01/20/2024 at 15:48 Approved by: Michelet Orozco M.D. on 01/20/2024 at 15:55
== END ==
PROVIDERS: PCP Family Medicine; Referring Provider Family Medicine; Visit Provider Family Medicine
DX: M81.0 Age-related osteoporosis without current pathological fracture (principal)
CPT/HCPCS: 77080; 77081

== ENCOUNTER → 2024-01-23 07:34 | Outpatient (CLI) | payer MEDICARE, SELFPAY ==
[2024-01-23 09:15] LABS: Alanine Aminotransferase 23 IU/L (<35); Albumin 4.1 g/dL (3.5-5.0); Albumin Globulin Ratio 1.6 (1.0-2.8); Alkaline Phosphatase 47 U/L (38-126); Aspartate Aminotransferase 29 IU/L (14-36); BUN Creatinine Ratio 21.8 (6-22); Bilirubin Total 0.5 mg/dL (0.2-1.3); Blood Urea Nitrogen 17 mg/dL (7-17); Calcium 9.3 mg/dL (8.4-10.2); Carbon Dioxide 25 mmol/L (22-32); Chloride 107 mmol/L (98-107); Cholesterol 206 mg/dL (140-199); Estimated Glomerular Filt Rate > 60 mL/min (>60); Globulin 2.5 g/dL (1.7-4.1); Glucose 89 mg/dL (80-110); HDL Cholesterol 79 mg/dL (40-60); HEMOLYSIS < 15 (0-50); LDL Cholesterol Calculated 111 mg/dL (<100); Potassium 4.4 mmol/L (3.4-5.1); Sodium 137 mmol/L (137-145); Total Protein 6.6 g/dL (6.3-8.2); Triglycerides 81 mg/dL (35-150)
[2024-01-23 09:21] LABS: High Sensitivity CRP - Cardiac 0.8 mg/L (1.0-3.0)
[2024-01-23 09:48] LABS: TSH w/ Reflex to FT4 2.06 uIU/mL (0.47-4.68)
== END ==
PROVIDERS: PCP Family Medicine; Referring Provider Family Medicine; Visit Provider Family Medicine
DX: E78.5 Hyperlipidemia, unspecified (principal); M81.0 Age-related osteoporosis without current pathological fracture; E03.9 Hypothyroidism, unspecified
CPT/HCPCS: 36415; 80053; 80061; 84443; 86140

== ENCOUNTER → 2024-05-18 07:10 | Outpatient (CLI) | payer MEDICARE, SELFPAY ==
[2024-05-18 08:07] LABS: Cholesterol 286 mg/dL (140-199); HDL Cholesterol 73 mg/dL (40-60); LDL Cholesterol Calculated 199 mg/dL (<100); Triglycerides 70 mg/dL (35-150)
[2024-05-18 08:11] LABS: High Sensitivity CRP - Cardiac 1.5 mg/L (1.0-3.0)
== END ==
PROVIDERS: PCP Family Medicine; Referring Provider Family Medicine; Visit Provider Family Medicine
DX: E78.5 Hyperlipidemia, unspecified (principal); M81.0 Age-related osteoporosis without current pathological fracture; E03.9 Hypothyroidism, unspecified
CPT/HCPCS: 36415; 80061; 82523; 86140

== ENCOUNTER → 2024-12-29 09:49 | Outpatient (CLI) | payer MEDICARE, SELFPAY ==
--- NOTE | 2024-12-29 09:50 | DI.RAD.S_ITS ---
PROCEDURE: FL BARIUM SWALLOW INDICATIONS: intermittent coughing fits/ choking COMPARISON: None. FINDINGS: Function: Mild tertiary contractions are present. There is prompt clearance of contrast material from the esophagus with normal relaxation of the lower esophageal sphincter. No elicited gastroesophageal reflux. There is normal transit of a calibrated barium tablet through the esophagus into the stomach. Morphology: Small hiatal hernia. Air-contrast images demonstrate normal mucosal morphology. Single contrast views show no esophageal strictures, extrinsic mass effects, or diverticula. Limited images of the stomach demonstrate normal appearance. IMPRESSION: Small reducible hiatal hernia. Approved by: Reggie Oro M.D. on 12/29/2024 at 20:50
== END ==
LOC: RAD 09:50
PROVIDERS: PCP Family Medicine; Referring Provider Family Medicine; Visit Provider Radiology Diagnostic Radiology
DX: K44.9 Diaphragmatic hernia without obstruction or gangrene (principal); R05.8 Other specified cough; R09.89 Other specified symptoms and signs involving the circulatory and respiratory systems
CPT/HCPCS: 74220

== ENCOUNTER 2025-03-09 17:00 | Outpatient (RCR) | payer MEDICARE, SELFPAY ==
--- NOTE | 2025-01-13 17:56 | PT.OIE ---
Current Diagnoses Unsteadiness on feet (01/13/25) Other abnormalities of gait and mobility (01/13/25) Repeated falls (01/13/25) History of falling (01/13/25) Past Medical History (Last Reviewed 12/28/24 @ 08:38 by Susan Masters DO) Cataracts, bilateral Fractures (~2019) Hypothyroidism (~2009) Osteoporosis (~2013) Past Surgical History (Last Reviewed 12/28/24 @ 08:38 by Susan Masters DO) Anesthesia History of cataract removal with insertion of prosthetic lens History of section (~05/10/85) Visit Care Team Role Provider Type Susan Masters DO Attending Provider Physician Family Provider Primary Care Provider Referring Provider Specialty: Medical Address: [address] [place] [address], [address], [address] Email: [email or web address] Physical Therapy Initial Evaluation PT-OP-A Visit Information Start: 01/13/25 16:02 Freq: Status: Active Protocol: Document 01/13/25 14:30 DCW (Rec: 01/13/25 16:15 DCW [id number]) Out-Patient Physical Therapy Visit Information Visit Information Visit Type Initial Evaluation Visit Start Time 14:30 Visit Stop Time 15:15 Visit Number 1 Number of FACE WORKER Visits 0 Evaluation Information Evaluation Date 01/13/25 PT-OP-B Current Condition Start: 01/13/25 16:02 Freq: Status: Active Protocol: Document 01/13/25 14:30 DCW (Rec: 01/13/25 16:15 DCW [id number]) Current Condition History of Current Condition Onset Date Multi-year history Current Complaints Unsteadiness/imbalance, falls, occasional position- dependent vertigo History of Current Pt is a 79 year old female presenting with a long- Condition standing history of instability/unsteadiness, vertigo, and falls. Pt reports that she had her first episode of vertigo ~25 years ago, which she believes was more positional in nature. Her recent history has been more the past 2-3 years of feeling unsteady and off balance, especially when making quick head turns, changing direction, and standing up quickly after bending over. Does note she occasionally will experience rotational vertigo with positional changes in bed, but does not feel that has been happening as much recently. Does end up falling, typically when working in her garden, notes she believes she has fallen 12 times in the past three months. Denies recent changes in her hearing or vision. Denies history of HTN, diabetes, head trauma, seizure, or CVA. PT-OP-C Subjective Start: 01/13/25 16:02 Freq: Status: Active Protocol: Document 01/13/25 14:30 DCW (Rec: 01/13/25 16:17 DCW [id number]) OP-PT Subjective Patient Comments Patient Comments Walking down the street, I look like I take the drunken pathway. Patient Reported Worse Progress Patient Questionnaires Other Questionnaire Name Falls Efficacy Scale - International: 38/64 and Score PT-OP-O Vestibular Start: 01/13/25 16:02 Freq: Status: Active Protocol: Document 01/13/25 14:30 DCW (Rec: 01/13/25 16:15 DCW [id number]) Vestibular Assessment Auditory Tests Nash Test Within normal limits Rinne Test Negative Air Conduction Equal Results Visual Testing Smooth Pursuits WNL Horizontal Smooth Pursuits WNL Vertical Saccades Horizontal WNL Gaze Evoked Negative Nystagmus With Fixation Heave Test Positive Bilateral Thrust Head Positive Bilateral Positional Testing Maisha-Hallpike Negative Left,Negative Right Rolling Test Negative Left,Negative Right Vestibular Function Tests CTSIB Position 1 30 seconds - Moderate sway CTSIB Position 2 30 seconds - Severe sway CTSIB Position 3 30 seconds - Severe sway CTSIB Position 4 Fall Reaction CTSIB Position 5 Fall Reaction CTSIB Position 6 Fall Reaction PT-OP-T Assessment and Plan Start: 01/13/25 16:02 Freq: Status: Active Protocol: Document 01/13/25 14:30 DCW (Rec: 01/13/25 17:56 DCW [id number]) Physical Therapy Assessment Rehab Potential Rehabilitation Good Potential Evaluation Complexity Number of Personal 3 or More Factors/ Comorbidities Number of Body 4 or More Systems Impaired Impairments Impairments Activity Tolerance,Balance,Functional Activities, Functional Mobility,Gait,Vestibular Goals Three Impairment Pt exhibits a fall reaction on CTSIB positions IV, V, and Senior Sales Associate Goal (LTG) Pt to demonstrate ability to maintain CTSIB positions IV and without a falls reaction for at least 30 seconds in order to demonstrate decreased falls risk LTG Duration 03/16/25 Two Impairment Pt scored a 38/64 on the Falls Efficacy Scale - International Senior Sales Associate Goal (LTG) Pt to improve FES score by at least eight points to 30/ 64 in order to demonstrate a decreased fear of falling LTG Duration 03/16/25 One Impairment Pt does not have an appropriate home exercise program Short Term Goal (STG Pt to be independent and compliant with an appropriate ) HEP STG Duration 02/13/25 Assessment Summary Assessment Pt presents with signs and symptoms consistent with referring diagnosis. Pt's vestibular testing today did not indicate any unilateral dysfunction or BPPV, however thrust/heave testing did indicate a larger than expected bilateral decrease in inner ear function, most likely due to presbystasis/age-related changes. In addition to this, pt also has undergone cataract surgery with one lens for close-up and one for far, which can compound decline in vestibular function. Pt will likely benefit from skilled therapy focusing on vestibular rehabilitation, balance challenges, habituation/adaptation exercises, and oculomotor activities in an effort to decrease the number of falls . Physical Therapy Plan Frequency and Duration Frequency of 1-2x/week Treatment Plan of Care Start 01/13/25 Date Plan of Care End 03/16/25 Date Therapeutic Interventions Therapeutic Balance Training,Canalithic Repositioning,Coordination Interventions Training,Gait Training,Home Exercise Program, Neuromuscular Re-education,Patient/Caregiver Education, Self-Care/Home Management,Soft Tissue Mobilization, Taping,Therapeutic Activities,Therapeutic Exercises Next Visit Focus/Plan Next Note Type Treatment Note Next Visit Plan Oculomotor exercises, balance training, adaptation/ habituation exercises.
--- NOTE | 2025-01-17 15:13 | PT.OTN ---
Current Diagnoses Unsteadiness on feet (01/17/25) Other abnormalities of gait and mobility (01/17/25) Repeated falls (01/17/25) History of falling (01/17/25) Physical Therapy Treatment Note PT-OP-A Visit Information Start: 01/13/25 16:02 Freq: Status: Active Protocol: Document 01/17/25 14:31 DCW (Rec: 01/17/25 15:13 DCW [id number]) Out-Patient Physical Therapy Visit Information Visit Information Visit Type Treatment Note Visit Start Time 14:31 Visit Stop Time 15:15 Visit Number 2 Number of MARKETER Visits 0 Evaluation Information Evaluation Date 01/13/25 PT-OP-B Current Condition Start: 01/13/25 16:02 Freq: Status: Active Protocol: Document 01/13/25 14:30 DCW (Rec: 01/13/25 16:15 DCW [id number]) Current Condition History of Current Condition Onset Date Multi-year history Current Complaints Unsteadiness/imbalance, falls, occasional position- dependent vertigo History of Current Pt is a 79 year old female presenting with a long- Condition standing history of instability/unsteadiness, vertigo, and falls. Pt reports that she had her first episode of vertigo ~25 years ago, which she believes was more positional in nature. Her recent history has been more the past 2-3 years of feeling unsteady and off balance, especially when making quick head turns, changing direction, and standing up quickly after bending over. Does note she occasionally will experience rotational vertigo with positional changes in bed, but does not feel that has been happening as much recently. Does end up falling, typically when working in her garden, notes she believes she has fallen 12 times in the past three months. Denies recent changes in her hearing or vision. Denies history of HTN, diabetes, head trauma, seizure, or CVA. PT-OP-C Subjective Start: 01/13/25 16:02 Freq: Status: Active Protocol: Document 01/17/25 14:31 DCW (Rec: 01/17/25 15:13 DCW [id number]) OP-PT Subjective Patient Comments Patient Comments Pt reports she was out working in her yard, is a little fatigued to start with PT-OP-E Functional Tests Start: 01/17/25 14:43 Freq: Status: Active Protocol: Document 01/17/25 14:31 DCW (Rec: 01/17/25 15:13 DCW [id number]) Functional Tests Dynamic Gait Index (DGI) Score PT-OP-O Vestibular Start: 01/13/25 16:02 Freq: Status: Active Protocol: Document 01/13/25 14:30 DCW (Rec: 01/13/25 16:15 DCW [id number]) Vestibular Assessment Auditory Tests Nash Test Within normal limits Rinne Test Negative Air Conduction Equal Results Visual Testing Smooth Pursuits WNL Horizontal Smooth Pursuits WNL Vertical Saccades Horizontal WNL Gaze Evoked Negative Nystagmus With Fixation Heave Test Positive Bilateral Thrust Head Positive Bilateral Positional Testing [place]-Hallpike Negative Left,Negative Right Rolling Test Negative Left,Negative Right Vestibular Function Tests CTSIB Position 1 30 seconds - Moderate sway CTSIB Position 2 30 seconds - Severe sway CTSIB Position 3 30 seconds - Severe sway CTSIB Position 4 Fall Reaction CTSIB Position 5 Fall Reaction CTSIB Position 6 Fall Reaction PT-OP-Q Treatments Start: 01/13/25 16:02 Freq: Status: Active Protocol: Document 01/17/25 14:31 DCW (Rec: 01/17/25 15:13 DCW [id number]) Neuro Re-Education Treatment Balance Activities Toe Taps Details Top Taps Surface AirEx Equipment 8 step Tandem Details Tandem stance Surface Firm Equipment // bars Foam Details DLS, X1 Vestibular Rehabilitation Corrective Saccades Details Eyes, then head Distance From Target Arm's length Speed as tolerated Position Seated X2 Viewing Details Target and head moving opposite directions Distance From Target Arm's length Speed as tolerated Position Seated X1 Viewing Details Static target with head turns Distance From Target Arm's length Speed as tolerated Position Seated VOR Retraining Details Target and head moving together Distance From Target Arm's length Speed as tolerated Position Seated Other Activities DGI Details PT-OP-T Assessment and Plan Start: 01/13/25 16:02 Freq: Status: Active Protocol: Document 01/17/25 14:31 DCW (Rec: 01/17/25 15:13 DCW [id number]) Physical Therapy Assessment Impairments Impairments Activity Tolerance,Balance,Functional Activities, Functional Mobility,Gait,Vestibular Goals Three Impairment Pt exhibits a fall reaction on CTSIB positions IV, V, and Correction Goal (LTG) Pt to demonstrate ability to maintain CTSIB positions IV and without a falls reaction for at least 30 seconds in order to demonstrate decreased falls risk LTG Duration 03/16/25 Two Impairment Pt scored a 38/64 on the Falls Efficacy Scale - International Marketing Instructor Goal (LTG) Pt to improve FES score by at least eight points to 30/ 64 in order to demonstrate a decreased fear of falling LTG Duration 03/16/25 One Impairment Pt does not have an appropriate home exercise program Short Term Goal (STG Pt to be independent and compliant with an appropriate ) HEP STG Duration 02/13/25 Assessment Summary Assessment Pt tolerated well. DGI suggestive of increased falls risk. PT happy with oculomotor exercises for HEP. Continue to focus on balance challenges, vestibular rehab, and functional movement. Physical Therapy Plan Frequency and Duration Frequency of 1-2x/week Treatment Plan of Care Start 01/13/25 Date Plan of Care End 03/16/25 Date Therapeutic Interventions Therapeutic Balance Training,Canalithic Repositioning,Coordination Interventions Training,Gait Training,Home Exercise Program, Neuromuscular Re-education,Patient/Caregiver Education, Self-Care/Home Management,Soft Tissue Mobilization, Taping,Therapeutic Activities,Therapeutic Exercises Next Visit Focus/Plan Next Note Type Treatment Note Next Visit Plan Oculomotor exercises, balance training, adaptation/ habituation exercises.
--- NOTE | 2025-02-15 13:00 | PT.OTN ---
Current Diagnoses Unsteadiness on feet (02/15/25) Other abnormalities of gait and mobility (02/15/25) Repeated falls (02/15/25) History of falling (02/15/25) Physical Therapy Treatment Note PT-OP-A Visit Information Start: 01/13/25 16:02 Freq: Status: Active Protocol: Document 02/15/25 12:15 DCW (Rec: 02/15/25 13:00 DCW [id number]) Out-Patient Physical Therapy Visit Information Visit Information Visit Type Treatment Note Visit Start Time 12:15 Visit Stop Time 13:00 Visit Number 3 Number of METAL EXTRUSION SUPERVISOR Visits 0 Evaluation Information Evaluation Date 01/13/25 PT-OP-B Current Condition Start: 01/13/25 16:02 Freq: Status: Active Protocol: Document 01/13/25 14:30 DCW (Rec: 01/13/25 16:15 DCW [id number]) Current Condition History of Current Condition Onset Date Multi-year history Current Complaints Unsteadiness/imbalance, falls, occasional position- dependent vertigo History of Current Pt is a 79 year old female presenting with a long- Condition standing history of instability/unsteadiness, vertigo, and falls. Pt reports that she had her first episode of vertigo ~25 years ago, which she believes was more positional in nature. Her recent history has been more the past 2-3 years of feeling unsteady and off balance, especially when making quick head turns, changing direction, and standing up quickly after bending over. Does note she occasionally will experience rotational vertigo with positional changes in bed, but does not feel that has been happening as much recently. Does end up falling, typically when working in her garden, notes she believes she has fallen 12 times in the past three months. Denies recent changes in her hearing or vision. Denies history of HTN, diabetes, head trauma, seizure, or CVA. PT-OP-C Subjective Start: 01/13/25 16:02 Freq: Status: Active Protocol: Document 02/15/25 12:15 DCW (Rec: 02/15/25 13:00 DCW [id number]) OP-PT Subjective Patient Comments Patient Comments I'm not always able to get two sessions in every day, but most days I am. I've noticed that when I'm looking down I get more of the visual stuff going on, and I think that's the main problem when I'm gardening, I'm always looking down and up and down again. PT-OP-E Functional Tests Start: 01/17/25 14:43 Freq: Status: Active Protocol: Document 01/17/25 14:31 DCW (Rec: 01/17/25 15:13 DCW [id number]) Functional Tests Dynamic Gait Index (DGI) Score PT-OP-O Vestibular Start: 01/13/25 16:02 Freq: Status: Active Protocol: Document 01/13/25 14:30 DCW (Rec: 01/13/25 16:15 DCW [id number]) Vestibular Assessment Auditory Tests Nash Test Within normal limits Rinne Test Negative Air Conduction Equal Results Visual Testing Smooth Pursuits WNL Horizontal Smooth Pursuits WNL Vertical Saccades Horizontal WNL Gaze Evoked Negative Nystagmus With Fixation Heave Test Positive Bilateral Thrust Head Positive Bilateral Positional Testing Maisha-Hallpike Negative Left,Negative Right Rolling Test Negative Left,Negative Right Vestibular Function Tests CTSIB Position 1 30 seconds - Moderate sway CTSIB Position 2 30 seconds - Severe sway CTSIB Position 3 30 seconds - Severe sway CTSIB Position 4 Fall Reaction CTSIB Position 5 Fall Reaction CTSIB Position 6 Fall Reaction PT-OP-Q Treatments Start: 01/13/25 16:02 Freq: Status: Active Protocol: Document 02/15/25 12:15 DCW (Rec: 02/15/25 13:00 DCW [id number]) Gym Equipment Shuttle Balance Red Details WBOS, Staggered Neuro Re-Education Treatment Balance Activities Dynamic Gait Details Hallway ambulation Comments Head turns (horizontal, vertical, diagonal) Foam Details SLS, Semi-tandem PT-OP-T Assessment and Plan Start: 01/13/25 16:02 Freq: Status: Active Protocol: Document 02/15/25 12:15 DCW (Rec: 02/15/25 13:00 DCW [id number]) Physical Therapy Assessment Impairments Impairments Activity Tolerance,Balance,Functional Activities, Functional Mobility,Gait,Vestibular Goals Three Impairment Pt exhibits a fall reaction on CTSIB positions IV, V, and Counter Sales Representative Goal (LTG) Pt to demonstrate ability to maintain CTSIB positions IV and without a falls reaction for at least 30 seconds in order to demonstrate decreased falls risk LTG Duration 03/16/25 Two Impairment Pt scored a 38/64 on the Falls Efficacy Scale - International Counter Sales Representative Goal (LTG) Pt to improve FES score by at least eight points to 30/ 64 in order to demonstrate a decreased fear of falling LTG Duration 03/16/25 One Impairment Pt does not have an appropriate home exercise program Short Term Goal (STG Pt to be independent and compliant with an appropriate ) HEP STG Duration 02/13/25 Assessment Summary Assessment Good response to increased challenges today, tolerated well. Difficulty with foam activities and Shuttle Balance. Continue to focus on vestibular exercises. Physical Therapy Plan Frequency and Duration Frequency of 1-2x/week Treatment Plan of Care Start 01/13/25 Date Plan of Care End 03/16/25 Date Therapeutic Interventions Therapeutic Balance Training,Canalithic Repositioning,Coordination Interventions Training,Gait Training,Home Exercise Program, Neuromuscular Re-education,Patient/Caregiver Education, Self-Care/Home Management,Soft Tissue Mobilization, Taping,Therapeutic Activities,Therapeutic Exercises Next Visit Focus/Plan Next Note Type Treatment Note Next Visit Plan Oculomotor exercises, balance training, adaptation/ habituation exercises.
--- NOTE | 2025-03-09 17:39 | PT.OTN ---
Current Diagnoses Unsteadiness on feet (03/09/25) Other abnormalities of gait and mobility (03/09/25) Repeated falls (03/09/25) History of falling (03/09/25) Physical Therapy Treatment Note PT-OP-A Visit Information Start: 01/13/25 16:02 Freq: Status: Active Protocol: Document 03/09/25 17:00 DCW (Rec: 03/09/25 17:37 DCW [id number]) Out-Patient Physical Therapy Visit Information Visit Information Visit Type Discharge Summary Visit Start Time 17:00 Visit Stop Time 17:30 Visit Number 4 Number of HIGH SCHOOL SPORTS COACH Visits 0 PT-OP-B Current Condition Start: 01/13/25 16:02 Freq: Status: Active Protocol: Document 01/13/25 14:30 DCW (Rec: 01/13/25 16:15 DCW [id number]) Current Condition History of Current Condition Onset Date Multi-year history Current Complaints Unsteadiness/imbalance, falls, occasional position- dependent vertigo History of Current Pt is a 79 year old female presenting with a long- Condition standing history of instability/unsteadiness, vertigo, and falls. Pt reports that she had her first episode of vertigo ~25 years ago, which she believes was more positional in nature. Her recent history has been more the past 2-3 years of feeling unsteady and off balance, especially when making quick head turns, changing direction, and standing up quickly after bending over. Does note she occasionally will experience rotational vertigo with positional changes in bed, but does not feel that has been happening as much recently. Does end up falling, typically when working in her garden, notes she believes she has fallen 12 times in the past three months. Denies recent changes in her hearing or vision. Denies history of HTN, diabetes, head trauma, seizure, or CVA. PT-OP-C Subjective Start: 01/13/25 16:02 Freq: Status: Active Protocol: Document 03/09/25 17:00 DCW (Rec: 03/09/25 17:37 DCW [id number]) OP-PT Subjective Patient Comments Patient Comments I feel a lot better walking down the street. PT-OP-E Functional Tests Start: 01/17/25 14:43 Freq: Status: Active Protocol: Document 03/09/25 17:00 DCW (Rec: 03/09/25 17:23 DCW [id number]) Functional Tests Dynamic Gait Index (DGI) Score PT-OP-O Vestibular Start: 01/13/25 16:02 Freq: Status: Active Protocol: Document 03/09/25 17:00 DCW (Rec: 03/09/25 17:23 DCW [id number]) Vestibular Assessment Vestibular Function Tests CTSIB Position 1 30 seconds - Mild sway CTSIB Position 2 30 seconds - Moderate sway CTSIB Position 3 30 seconds - Moderate sway CTSIB Position 4 30 seconds - Moderate sway CTSIB Position 5 Fall Reaction CTSIB Position 6 Fall Reaction PT-OP-Q Treatments Start: 01/13/25 16:02 Freq: Status: Active Protocol: Document 03/09/25 17:00 DCW (Rec: 03/09/25 17:39 DCW [id number]) Neuro Re-Education Treatment Vestibular Rehabilitation X2 Viewing Details Target and head moving opposite directions Distance From Target Arm's length Speed as tolerated Position Seated Other Activities DGI Details PT-OP-T Assessment and Plan Start: 01/13/25 16:02 Freq: Status: Active Protocol: Document 03/09/25 17:00 DCW (Rec: 03/09/25 17:37 DCW [id number]) Physical Therapy Assessment Goals Three Impairment Pt exhibits a fall reaction on CTSIB positions IV, V, and Detention Goal (LTG) Pt to demonstrate ability to maintain CTSIB positions IV and without a falls reaction for at least 30 seconds in order to demonstrate decreased falls risk LTG Duration 03/16/25 Two Impairment Pt scored a 38/64 on the Falls Efficacy Scale - International Cell Maker Goal (LTG) Pt to improve FES score by at least eight points to 30/ 64 in order to demonstrate a decreased fear of falling LTG Duration 03/16/25 One Impairment Pt does not have an appropriate home exercise program Short Term Goal (STG Pt to be independent and compliant with an appropriate ) HEP STG Duration 02/13/25 Assessment Summary Assessment Pt presenting with improvement with CTSIB position IV, able to maintain for 30 seconds with moderate sway. DGI score also improved from to , indicating pt is no longer at an increased falls risk. Pt doing very well, appropriate for discharge at this time. Physical Therapy Plan Frequency and Duration Frequency of 1-2x/week Treatment Plan of Care Start 01/13/25 Plan of Care End 03/16/25 Date Therapeutic Interventions Therapeutic Balance Training,Canalithic Repositioning,Coordination Interventions Training,Gait Training,Home Exercise Program, Neuromuscular Re-education,Patient/Caregiver Education, Self-Care/Home Management,Soft Tissue Mobilization, Taping,Therapeutic Activities,Therapeutic Exercises Discharge Physical Therapy Discharge Comments Discharge to independent [facility] Next Visit Focus/Plan Next Note Type Discharge Summary
== END 2025-05-26 09:32 | disposition home or self-care (01) ==
LOC: PHYS 17:00
PROVIDERS: Family Provider Family Medicine; PCP Family Medicine; Referring Provider Family Medicine; Visit Provider Family Medicine
DX: R26.89 Other abnormalities of gait and mobility (principal); R29.6 Repeated falls; Z91.81 History of falling; R26.81 Unsteadiness on feet
CPT/HCPCS: 97112; 97163

== ENCOUNTER → 2025-03-29 08:29 | Outpatient (CLI) | payer MEDICARE, SELFPAY ==
[2025-03-29 09:41] LABS: Alanine Aminotransferase 26 IU/L (<35); Albumin 4.1 g/dL (3.5-5.0); Albumin Globulin Ratio 1.4 (1.0-2.8); Alkaline Phosphatase 51 U/L (38-126); Blood Urea Nitrogen 20 mg/dL (7-17); Calcium 9.6 mg/dL (8.4-10.2); Carbon Dioxide 25 mmol/L (22-32); Chloride 105 mmol/L (98-107); Cholesterol 286 mg/dL (140-199); Estimated Glomerular Filt Rate > 60 mL/min (>60); Globulin 2.9 g/dL (1.7-4.1); Glucose 102 mg/dL (70-99); HDL Cholesterol 77 mg/dL (40-60); HEMOLYSIS < 15 (0-50); Potassium 4.4 mmol/L (3.4-5.1); Sodium 137 mmol/L (137-145); Total Protein 7.0 g/dL (6.3-8.2); Triglycerides 87 mg/dL (35-150)
[2025-03-29 10:10] LABS: TSH w/ Reflex to FT4 1.71 uIU/mL (0.47-4.68)
[2025-03-30 08:09] LABS: CRP, High Sensitivity 2.27 mg/L (0.00-3.00)
[2025-04-05 19:12] LABS: C-Telopeptide, Serum 231 pg/mL (.)
== END ==
PROVIDERS: Family Provider Family Medicine; PCP Family Medicine; Referring Provider Family Medicine; Visit Provider Family Medicine
DX: E78.5 Hyperlipidemia, unspecified (principal); M81.0 Age-related osteoporosis without current pathological fracture; E03.9 Hypothyroidism, unspecified
CPT/HCPCS: 36415; 80053; 80061; 82523; 84443; 86140